=== PATIENT | female | born 1970 | race Two or more races ===

== ENCOUNTER 2017-02-23 18:55 | Emergency (ER) | payer SELFPAY ==
[~2017-02-23] VITALS: Ht 160 cm; Wt 74.8 kg
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
[2017-02-23 19:28] LABS: BASOPHILS % (AUTO) 0.2 % (0.0-2.0); EOSINOPHILS # (AUTO) 0.3 /CMM (0.0-0.7); EOSINOPHILS % (AUTO) 2.3 % (0.0-6.0); HEMATOCRIT 30 % (33-45); HEMOGLOBIN 9.7 g/dL (11.5-14.8); LYMPHOCYTES # (AUTO) 3.7 /CMM (0.8-4.8); LYMPHOCYTES % (AUTO) 27.2 % (20.0-44.0); MEAN CORPUSCULAR HEMOGLOBIN 22 PG (26.0-33.0); MEAN CORPUSCULAR HGB CONC 32 g/dl (31.0-36.0); MEAN CORPUSCULAR VOLUME 67 fL (82-100); MONOCYTES # (AUTO) 0.6 /CMM (0.1-1.30); MONOCYTES % (AUTO) 4.3 % (2.0-12.0); NEUTROPHILS # (AUTO) 9.1 /CMM (1.8-8.9); PLATELET COUNT (AUTO) 394 /CMM (150-450); RDW COEFFICIENT OF VARIATION 18.3 (11.5-15.0); WHITE BLOOD COUNT (AUTO) 13.8 K/uL (4.3-11.0)
--- NOTE | 2017-02-23 19:36 | NUR ---
20G LEFT AC IV STARTED
[2017-02-23] MEDS ORDERED: IOHEXOL-300 100 ML VIAL IV ONE (19:38)
[2017-02-23] MEDS ORDERED: IV NS 0.9% 250 ML IV ONE (19:38)
[2017-02-23 19:40] LABS: CALCIUM, SERUM 8.4 mg/dL (8.5-10.1); CREATININE 0.6 mg/dL (0.6-1.3); POTASSIUM 3.2 mmol/L (3.5-5.1)
[2017-02-23 19:44] LABS: INR 0.96 (0.87-1.13)
[2017-02-23 19:46] LABS: ALBUMIN 3.5 g/dL (3.4-5.0); BILIRUBIN,DIRECT 0.1 mg/dL (0.0-0.2); BILIRUBIN,TOTAL 0.3 mg/dL (0.2-1.0); TOTAL PROTEIN, SERUM 6.9 g/dL (6.4-8.2)
[2017-02-23] MEDS ORDERED: MORPHINE SULFATE INJ 2 MG/ML DISP.SYRIN IV ONE (20:30)
[2017-02-23] MEDS ORDERED: ONDANSETRON HCL/PF - ER 4 MG/2 ML VIAL IV ONE (20:30)
--- NOTE | 2017-02-23 20:32 | NUR ---
C-COLLAR REMOVED PER DR GARSIA
[2017-02-23] MEDS ORDERED: ONDANSETRON HCL/PF 4 MG/2 ML VIAL ONE (20:43)
[2017-02-23] MEDS ORDERED: MORPHINE SULFATE INJ 4 MG/ML DISP.SYRIN ONE (20:44)
[2017-02-23 21:32] VITALS: BP 145/98
--- NOTE | 2017-02-23 21:33 | NUR ---
Patient discharged to home in stable condition. Written and verbal after care instructions given. Patient verbalizes understanding of instruction.IV removed. Catheter intact and site benign. Pressure and 4x4 applied to site. No bleeding noted. PT ambulatory with a steady gait VITAL SIGNS WITHIN NORMAL LIMITS.
== END 2017-02-23 21:32 | disposition home or self-care (01) ==
LOC: ER 18:56
DX: M54.2 Cervicalgia (principal); R07.89 Other chest pain; M79.1 Myalgia; R51 Headache; R10.84 Generalized abdominal pain; R79.89 Other specified abnormal findings of blood chemistry; E11.9 Type 2 diabetes mellitus without complications; V09.00XA Pedestrian injured in nontraffic accident involving unspecified motor vehicles, initial encounter; Y93.01 Activity, walking, marching and hiking; Y92.89 Other specified places as the place of occurrence of the external cause; Y99.9 Unspecified external cause status
CPT/HCPCS: 36415; 70450; 71260; 72125; 74177; 80048; 80076; 82962; 83690; 84703; 85025; 85730; 96374; 96375; 99285; A4606; A6402; J2270; J2405; J7050; Q9967; Z7610